=== PATIENT | female | born 1955 | race Caucasian/White ===

== ENCOUNTER → 2016-12-14 | Outpatient (CLI) | payer MEDICARE, OTHER | LOC: RADNMMAIN 10:06 | PROVIDERS: ATTEND Transplant Surgery | DX: Z53.9 Procedure and treatment not carried out, unspecified reason (principal) ==

== ENCOUNTER → 2016-12-14 | Outpatient (CLI) | payer MEDICARE, OTHER ==
--- NOTE | 2016-12-15 10:10 | MM ---
Reason for exam: screening (asymptomatic). Last mammogram was performed 1 year and 10 months ago. History: Patient is postmenopausal and is nulliparous. Excisional biopsy of the right breast. Physical Findings: A clinical breast exam by your physician is recommended on an annual basis and results should be correlated with mammographic findings. MG Screening Mammo w CAD Bilateral CC and MLO view(s) were taken. Prior study comparison: January 29, 2015, bilateral MG screening mammo w CAD. July 24, 2013, [facility] DIGITAL RIGHT MAMMOGRAM w/CAD. There are scattered fibroglandular densities. Finding #1: Stable architectural distortion in the anterior position of the right breast consistent with known excisional biopsy. Finding #2: There are few typically benign round calcifications in the right breast. There is a chronic nodularity in the right breast. There is no discrete abnormality. ASSESSMENT: Benign, BI-RAD 2 RECOMMENDATION: Routine screening mammogram of both breasts in 1 year.
== END | disposition home or self-care (01) ==
LOC: RADMAMWWP 09:38
PROVIDERS: ATTEND Transplant Surgery
DX: Z12.31 Encounter for screening mammogram for malignant neoplasm of breast (principal)

== ENCOUNTER → 2017-01-18 | Outpatient (CLI) | payer MEDICARE, OTHER ==
[~2017-01-18] MED LIST: ATROPINE SULFATE 0.1 MG/ML 10ML SYRINGE ONE; DOBUTamine DRIP for NUC MED 500 MG in DEXTROSE/WATER 1 250ML.BAG IV ONE; METOPROLOL TARTRATE 5 MG/5 ML VIAL IVP ONE
--- NOTE | 2017-01-18 11:16 | ECHOS ---
DATE OF SERVICE: 01/18/2017 AGE: 61Y SEX: F HT: 66 WT: 182 lbs. Protocol Adalberto: Others: Dobutamine Stress Echo Stage: Dur. of Exercise: *Heart Rate Blood Pressure *Rest: 92 Rest: 119/72 * *Max. Achieved: 144 Maximum BP: 155/61 85% PMHR: 137 100% PMHR: 161 *METS: INDICATIONS OF THE STUDY: Chest pain. MEDICATIONS: Synthroid, aspirin. STRESS DATA" Pretesting physical examination showed heart rate of 92, pressure is 119/72 mmHg. Baseline EKG showed sinus rhythm. Dobutamine infusion at a dose of 10 mcg/kg per minute was initiated and increased 20 mcg/kg per minute. The patient achieved a max heart rate of 144, which is about 90% of maximum predicted heart rate. Maximum blood pressure was 155/61 mmHg. Clinically the patient did not have any symptoms of chest pain or discomfort. The EKG showed about ( ) mm horizontal ST segment changes. ECHOCARDIOGRAM IMAGES: On echocardiogram images from parasternal long axis view, parasternal short axis view, apical 4 chambers and apical 2 chambers view were obtained at the baseline images, at low-dose dobutamine infusion, at peak heart rate as well as on recovery. The echocardiogram images showed overall good augmentation in the left ventricular systolic function. CONCLUSION: 1. Mild EKG changes in response to dobutamine. 2. Normal echocardiogram in response to dobutamine.
== END | disposition home or self-care (01) ==
LOC: RADNMMAIN 09:43
PROVIDERS: ATTEND Transplant Surgery
DX: Z13.6 Encounter for screening for cardiovascular disorders (principal)
CPT/HCPCS: 93017; 93350; J1250

== ENCOUNTER → 2017-04-26 | Outpatient (CLI) | payer MEDICARE, OTHER ==
[2017-04-26 12:35] LABS: EKG EKG PERFORMED
[2017-04-26 13:44] LABS: Basophils % (A) 1 %; CH 33.3; CHCM 32.5; Eosinophils # (A) 0.4 k/uL (0-0.7); Eosinophils % (A) 8 %; HCT 29.7 % (34.0-46.0); HGB 9.8 gm/dL (11.4-16.0); Luc # (Auto) 0.14; Luc % (Auto) 3; Lymphocytes # (A) 1.2 k/uL (1.0-4.8); Lymphocytes % (A) 23 %; MCHC 33.1 g/dL (31.0-37.0); MCV 102.9 fL (80.0-100.0); Macrocytosis Slight; Mean Platelet Volume 7.1; Monocytes # (A) 0.4 k/uL (0-1.0); Monocytes % (A) 7 %; Neutrophils % (A) 60 %; RBC 2.89 m/uL (3.80-5.40); RDW 13.6 % (11.5-15.5); WBC 5.1 k/uL (3.8-10.6); WBC (Perox) 5.32
[2017-04-26 14:24] LABS: ALT 11 U/L (9-52); AST 15 U/L (14-36); Alkaline Phosphatase 85 U/L (38-126); Anion Gap 13 mmol/L; Bilirubin, Delta 0.4 mg/dL (0.0-0.2); Blood Urea Nitrogen 66 mg/dL (7-17); Calcium 9.6 mg/dL (8.4-10.2); Carbon Dioxide 29 mmol/L (22-30); Chloride 94 mmol/L (98-107); Cholesterol 183 mg/dL (<200); GGT 12 U/L (12-43); Glucose 91 mg/dL (74-99); LDH 337 U/L (313-618); Potassium 4.3 mmol/L (3.5-5.1); Sodium 136 mmol/L (137-145); Total Bilirubin 0.4 mg/dL (0.2-1.3); Total Protein 5.7 g/dL (6.3-8.2)
[2017-04-26 14:35] LABS: Non-African American GFR(MDRD) 5 (>60 ml/min/1.73 sqM)
[2017-04-26 14:44] LABS: Hepatitis B Surface Ag Index 0.04
[2017-04-26 14:49] LABS: Hepatitis B Core IgM Index 0.01
[2017-04-26 15:02] LABS: Hepatitis C Virus IgG Ab Negative (Negative); Hepatitis C Virus IgG Index 0.01
[2017-04-26 19:38] LABS: Treponemal Ab Non-Reactive (Non-Reactive)
[2017-04-26 20:08] LABS: Hepatitis B Surface Antibody Reactive (Non-Reactive)
[2017-04-27 15:51] LABS: Hepatits C Virus RNA, Quant <12 IU/mL (<12); LOG HCV IU/mL <1.08 (<1.08)
== END | disposition home or self-care (01) ==
LOC: LABWHC1 12:05
PROVIDERS: ATTEND Surgery
DX: Z01.810 Encounter for preprocedural cardiovascular examination (principal); B25.9 Cytomegaloviral disease, unspecified; K71.6 Toxic liver disease with hepatitis, not elsewhere classified; B17.10 Acute hepatitis C without hepatic coma; E80.7 Disorder of bilirubin metabolism, unspecified; R68.89 Other general symptoms and signs; D53.9 Nutritional anemia, unspecified; E78.00 Pure hypercholesterolemia, unspecified; Z11.1 Encounter for screening for respiratory tuberculosis; Z11.4 Encounter for screening for human immunodeficiency virus [HIV]; Z11.3 Encounter for screening for infections with a predominantly sexual mode of transmission; Z13.6 Encounter for screening for cardiovascular disorders; Z11.59 Encounter for screening for other viral diseases
CPT/HCPCS: 36415; 80053; 82248; 82465; 82977; 83615; 85025; 86480; 86644; 86704; 86705; 86706; 86780; 86803; 87340; 87390; 87522; 93005

== ENCOUNTER → 2017-09-10 | Outpatient (CLI) | payer MEDICARE, OTHER ==
--- NOTE | 2017-09-10 16:48 | XR ---
EXAMINATION TYPE: XR chest 2V DATE OF EXAM: 09/10/2017 COMPARISON: 07/29/2015 HISTORY: Preoperative evaluation for kidney transplant. TECHNIQUE: Frontal and lateral views of the chest are obtained. FINDINGS: There is no focal air space opacity, pleural effusion, or pneumothorax seen. The cardiac silhouette size is within normal limits. The osseous structures are intact. Mild multilevel degener ative changes of the thoracic spine are noted. IMPRESSION: No acute cardiopulmonary process, unchanged from the prior.
--- NOTE | 2017-09-11 21:02 | US ---
EXAMINATION TYPE: US kidneys/renal and bladder DATE OF EXAM: 09/10/2017 COMPARISON: Prior renal ultrasound July 29, 2015 CLINICAL HISTORY: Eval renal cyst N28.1. EXAM MEASUREMENTS: Right Kidney: 4.4 x 2.1 x 2.8 cm Left Kidney: 5.7 x 2.4 x 2.7 cm Patient of large body habitus, she has been on dialysis for 2 1/2 years Right Kidney: atrophied ill defined, difficult to see, unable to view for a sweep of the kidney Left Kidney: atrophied ill defined, difficult to see, unable to view for a sweep of the kidney, cyst noted measuring 1.0 x 1. 0 x 1.0cm Bladder: patient stated that she felt her bladder was full, technologist unable to visualize bladder Bilateral Jets seen: No Study limited by body habitus and small kidney size. Technically difficult. Exam suboptimal secondary to patient's large body habitus. Atrophied end-stage kidneys are redemonstr ated bilaterally. Bladder is poorly distended and thus suboptimally evaluated. IMPRESSION: Suboptimal study due to patient's body habitus, findings consistent with end-stage renal disease rede monstrated as there are small atrophic kidneys with small hypoechoic lesions likely reflecting simple cysts all redemonstrated bilaterally. No significant change from prior ultrasound.
== END | disposition home or self-care (01) ==
LOC: RADUSWWP 15:53 → EDBD 09-13 13:40
PROVIDERS: ATTEND Surgery
DX: N26.1 Atrophy of kidney (terminal) (principal); N28.89 Other specified disorders of kidney and ureter
CPT/HCPCS: 71046; 76770

== ENCOUNTER → 2018-04-06 | Outpatient (CLI) | payer MEDICARE, OTHER ==
--- NOTE | 2018-04-07 14:46 | MM ---
Reason for exam: screening (asymptomatic). Last mammogram was performed 1 year and 4 months ago. History: Patient is postmenopausal and is nulliparous. Excisional biopsy of the right breast. Physical Findings: A clinical breast exam by your physician is recommended on an annual basis and results should be correlated with mammographic findings. MG Screening Mammo w CAD Bilateral CC and MLO view(s) were taken. Prior study comparison: December 14, 2016, bilateral MG screening mammo w CAD. January 29, 2015, bilateral MG screening mammo w CAD. There are scattered fibroglandular densities. Finding: There is are suspicious, multiple, high, varied sized, high density masses located 4 cm from the nipple in the lower inner quadrant of the right breast. ASSESSMENT: Incomplete: need additional imaging evaluation, BI-RAD 0 RECOMMENDATION: Special view mammogram of the right breast. If lesion persists on supplemental views, image directed ultrasound is recommended. [facility] will attempt to contact patient to return for supplemental views and ultrasound if indicated.
== END | disposition home or self-care (01) ==
LOC: RADMAMWWP 16:00
PROVIDERS: ATTEND Surgery
DX: Z12.31 Encounter for screening mammogram for malignant neoplasm of breast (principal)
CPT/HCPCS: 77067

== ENCOUNTER → 2018-04-27 | Outpatient (CLI) | payer MEDICARE, OTHER ==
--- NOTE | 2018-04-28 09:13 | MM ---
Reason for exam: additional evaluation requested from abnormal screening. Last mammogram was performed 1 month ago. History: Patient is postmenopausal and is nulliparous. Excisional biopsy of the right breast. Physical Findings: Nurse did not find any significant physical abnormalities on exam. MG Work Up Mamm w CAD RT Spot compression CC, spot compression MLO, and LM view(s) were taken of the right breast. Prior study comparison: April 06, 2018, bilateral MG screening mammo w CAD. December 14, 2016, bilateral MG screening mammo w CAD. Nodular focal asymmetries persist gradually and 9 o'clock periareolar. These results were verbally communicated with the patient and result sheet given to the patient on 04/27/18. ASSESSMENT: Incomplete: need additional imaging evaluation, BI-RAD 0 RECOMMENDATION: Ultrasound of the right breast. (1-5 o'clock and 9 o'clock periareolar)
--- NOTE | 2018-04-28 09:18 | USB ---
Reason for exam: additional evaluation requested from abnormal screening. History: Patient is postmenopausal and is nulliparous. Excisional biopsy of the right breast. US Breast Workup Limited RT Rigth limited breast ultrasound including focal area of concern, retroareolar and axilla demonstrates a 3.5 x 1.8 x 3.0mm mixed lesion at 2 o'clock for which a 6 month follow up is recommended, a 4.6 x 2.8 x 6.6mm cystic lesion at 3 o'clock, a 2.6 x 2.7 x 2.5mm cystic, benign lesion at 9 o'clock and a 8.4 x 3.9 x 7.0mm benign, cystic cluster at 12 o'clock. Scanned 12-9 o'clock. These results were verbally communicated with the patient and result sheet given to the patient on 04/27/18. ASSESSMENT: Probably benign, BI-RAD 3 RECOMMENDATION: Follow-up diagnostic mammogram and ultrasound of the right breast in 6 months.
== END | disposition home or self-care (01) ==
LOC: RADMAMWWP 14:56
PROVIDERS: ATTEND Surgery
DX: R92.8 Other abnormal and inconclusive findings on diagnostic imaging of breast (principal)
CPT/HCPCS: 77065

== ENCOUNTER → 2018-06-22 | Outpatient (CLI) | payer MEDICARE, OTHER ==
[2018-06-22 17:37] LABS: Basophils % (A) 1 %; Eosinophils # (A) 0.4 k/uL (0-0.7); Eosinophils % (A) 9 %; HCT 32.3 % (34.0-46.0); HGB 10.1 gm/dL (11.4-16.0); Lymphocytes % (A) 23 %; MCHC 31.4 g/dL (31.0-37.0); MCV 104.9 fL (80.0-100.0); Macrocytosis Slight; Mean Platelet Volume 7.2; Monocytes # (A) 0.3 k/uL (0-1.0); Monocytes % (A) 8 %; Neutrophils # (A) 2.4 k/uL (1.3-7.7); Neutrophils % (A) 56 %; Platelet Count 310 k/uL (150-450); RBC 3.08 m/uL (3.80-5.40); RDW 13.6 % (11.5-15.5); WBC 4.3 k/uL (3.8-10.6)
[2018-06-23 03:14] LABS: EBV-VCA (IgG) >8.0 AI
[2018-06-23 03:31] LABS: HIV 1 AB Non-Reactive (Non-Reactive); HIV AB P24 Non-Reactive (Non-Reactive); HIV P24 AG Non-Reactive (Non-Reactive)
[2018-06-23 03:57] LABS: ALT 17 U/L (8-44); AST 20 U/L (13-35); Albumin/Globulin Ratio 2.41 (1.20-2.10); Alkaline Phosphatase 181 U/L (41-126); Calcium 8.8 mg/dL (8.7-10.3); Carbon Dioxide 30.2 mmol/L (21.6-31.8); Chloride 96 mmol/L (96-109); Cholesterol 182 mg/dL (0-200); GGT <15 U/L (0-38); Globulin 1.7 g/dL (2.1-3.7); Glucose 82 mg/dL (70-110); LDH 189 U/L (120-246); Phosphorus 3.8 mg/dL (2.4-5.1); Potassium 4.1 mmol/L (3.5-5.5); Sodium 137 mmol/L (135-145); Total Bilirubin 0.4 mg/dL (0.3-1.2); Total Protein 5.8 g/dL (6.2-8.2)
[2018-06-23 05:15] LABS: Hepatitis B Surface AB- Quant 728.3 mIU/mL; Hepatitis C IgG Antibody Non-Reactive (Non-Reactive)
[2018-06-23 05:16] LABS: Hepatitis B Core IgM Non-Reactive (Non-Reactive)
[2018-06-25 14:27] LABS: Hepatits C Virus RNA Not detected (Not detected); Hepatits C Virus RNA, Quant <12 IU/mL (<12); LOG HCV IU/mL <1.08 (<1.08)
== END ==
LOC: LABWHC1 16:11
PROVIDERS: ATTEND Surgery
DX: B25.9 Cytomegaloviral disease, unspecified (principal); B27.90 Infectious mononucleosis, unspecified without complication; E80.7 Disorder of bilirubin metabolism, unspecified; E83.39 Other disorders of phosphorus metabolism; R74.8 Abnormal levels of other serum enzymes; R79.9 Abnormal finding of blood chemistry, unspecified; R74.0 Nonspecific elevation of levels of transaminase and lactic acid dehydrogenase [LDH]; Z11.59 Encounter for screening for other viral diseases; Z11.4 Encounter for screening for human immunodeficiency virus [HIV]; Z11.3 Encounter for screening for infections with a predominantly sexual mode of transmission; Z13.228 Encounter for screening for other metabolic disorders; Z13.220 Encounter for screening for lipoid disorders; Z11.1 Encounter for screening for respiratory tuberculosis; Z13.6 Encounter for screening for cardiovascular disorders
CPT/HCPCS: 36415; 80053; 82465; 82977; 83615; 84100; 85025; 86480; 86644; 86663; 86664; 86665; 86704; 86705; 86706; 86780; 86803; 87340; 87390; 87522; 93005